=== PATIENT | male | born 1950 | race Caucasian/White ===

== ENCOUNTER 2023-08-06 13:34 | Outpatient (CLI) | payer MEDICARE, OTHER ==
[2023-08-06 20:12] LABS: BASOPHILS # (AUTO) 0.1 10^3/uL (0.0-0.1); BASOPHILS % (AUTO) 1.1 %; EOSINOPHILS # (AUTO) 0.2 10^3/uL (0.0-0.7); EOSINOPHILS % (AUTO) 3.2 %; HCT - HEMATOCRIT 51.6 % (42.0-52.0); HGB - HEMOGLOBIN 16.4 g/dL (14.0-18.0); LYMPHOCYTES % (AUTO) 19.2 %; MEAN CORPUSCULAR HEMOGLOBIN 31.9 pg (27.0-31.0); MEAN CORPUSCULAR HGB CONC 31.8 g/dL (32.0-36.0); MEAN CORPUSCULAR VOLUME 100.4 fL (80.0-94.0); MEAN PLATELET VOLUME 10.4 fL (7.4-11.4); MONOCYTES # (AUTO) 0.8 10^3/uL (0.0-1.0); MONOCYTES % (AUTO) 14.5 %; NEUTROPHILS # (AUTO) 3.3 10^3/uL (1.5-6.6); NEUTROPHILS % (AUTO) 61.6 %; PLT - PLATELET COUNT 211 10^3/uL (130-450); RED BLOOD COUNT 5.14 10^6/uL (4.70-6.10); RED CELL DISTRIBUTION WIDTH 14.6 % (12.0-15.0); WHITE BLOOD COUNT 5.3 x10^3/uL (4.8-10.8)
[2023-08-06 20:34] LABS: ALBUMIN 4.2 g/dL (3.2-5.5); ALBUMIN/GLOBULIN RATIO 1.6 (1.0-2.2); ALKALINE PHOSPHATASE 80 IU/L (42-121); ALT ALANINE AMINOTRANSFERASE 22 IU/L (10-60); AST ASPARTATE AMINOTRANSFERASE 22 IU/L (10-42); BILIRUBIN,TOTAL 0.8 mg/dL (0.2-1.0); BUN - BLOOD UREA NITROGEN 15 mg/dL (6-20); CALCIUM 9.5 mg/dL (8.5-10.3); CARBON DIOXIDE - CO2 31 mmol/L (21-32); CHLORIDE 104 mmol/L (101-111); CHOL/HDL RATIO 2.9 (<5.0); CHOLESTEROL 176 mg/dL; CRP - C-REACTIVE PROTEIN < 0.5 mg/dL (<0.5); GFR - MDRD 73 (>89); GLUCOSE 78 mg/dL (74-104); HDL CHOLESTEROL 61 mg/dL; LDL CHOLESTEROL,CALCULATED 95 mg/dL; LDL/HDL RATIO 1.6 (<3.6); POTASSIUM 4.1 mmol/L (3.5-4.5); SODIUM 138 mmol/L (135-145); TOTAL PROTEIN 6.9 g/dL (6.4-8.9); TRIGLYCERIDES 98 mg/dL (48-352); VLDL CHOLESTEROL 20 mg/dL
[2023-08-06 20:45] LABS: THYROID STIMULATING HORMONE 1.65 uIU/mL (0.34-5.60)
[2023-08-06 21:25] LABS: ESTIMATED AVERAGE GLUCOSE 91 mg/dL (70-100); HEMOGLOBIN A1c% 4.8 % (4.27-6.07)
== END 2023-08-06 13:35 | disposition home or self-care (01) ==
LOC: LAB.S 13:34
PROVIDERS: ATTEND Registered Nurse
DX: M79.2 Neuralgia and neuritis, unspecified (principal); R22.1 Localized swelling, mass and lump, neck; M35.00 Sjogren syndrome, unspecified
CPT/HCPCS: 36415; 80053; 80061; 83036; 83721; 84153; 84443; 85025; 85651; 86140

== ENCOUNTER 2023-08-18 10:51 | Outpatient (CLI) | payer MEDICARE, OTHER ==
--- NOTE | 2023-08-18 12:55 | Ultrasound Report ---
PROCEDURE: Soft Tissue Head or Neck INDICATIONS: NECK MASS TECHNIQUE: Real-time scanning was performed of the area of concern, with image documentation. COMPARISON: None FINDINGS: No abnormality is seen within the area of concern posterior to the left ear. No masses or lymphadenop athy. IMPRESSION: No abnormalities are seen within the area of concern. Reviewed by: Foreign Moreira MD on 08/18/2023 12:53 PM PDT Approved by: Foreign Moreira MD on 08/18/2023 12:53 PM PDT Station ID: [id number]
== END 2023-08-18 10:52 | disposition home or self-care (01) ==
LOC: DI 10:51
PROVIDERS: ATTEND Registered Nurse
DX: M79.2 Neuralgia and neuritis, unspecified (principal); R22.1 Localized swelling, mass and lump, neck

== ENCOUNTER 2023-09-30 17:53 | Outpatient (CLI) | payer MEDICARE, OTHER | END 2023-09-30 17:54 | disposition home or self-care (01) | LOC: LAB 17:53 | PROVIDERS: ATTEND Urology | DX: E29.1 Testicular hypofunction (principal) | CPT/HCPCS: 36415; 84403 ==

== ENCOUNTER 2023-11-09 11:31 | Outpatient (CLI) | payer MEDICARE, OTHER ==
[2023-11-09 15:41] LABS: CHOL/HDL RATIO 2.2 (<5.0); CHOLESTEROL 159 mg/dL; HDL CHOLESTEROL 73 mg/dL; LDL CHOLESTEROL,CALCULATED 78 mg/dL; LDL CHOLESTEROL,DIRECT 89 mg/dL (75-193); LDL/HDL RATIO 1.1 (<3.6); TRIGLYCERIDES 42 mg/dL (48-352); VLDL CHOLESTEROL 8 mg/dL
[2023-11-09 20:56] LABS: ESTIMATED AVERAGE GLUCOSE 94 mg/dL (70-100); HEMOGLOBIN A1c% 4.9 % (4.27-6.07)
== END 2023-11-09 11:32 | disposition home or self-care (01) ==
LOC: LAB.S 11:31
PROVIDERS: ATTEND Internal Medicine Cardiovascular Disease
DX: Z82.49 Family history of ischemic heart disease and other diseases of the circulatory system (principal)
CPT/HCPCS: 36415; 80061; 83036; 83721

== ENCOUNTER 2023-12-20 08:58 | Outpatient (CLI) | payer MEDICARE, OTHER | END 2023-12-20 08:59 | disposition home or self-care (01) | LOC: LAB.S 08:58 | DX: R14.0 Abdominal distension (gaseous) (principal); R19.7 Diarrhea, unspecified ==

== ENCOUNTER 2023-12-22 12:02 | Outpatient (CLI) | payer MEDICARE, OTHER ==
[2023-12-22 14:10] LABS: H. PYLORIS ANTIGEN STL NEGATIVE (Negative)
== END 2023-12-22 12:03 | disposition home or self-care (01) ==
LOC: LAB.R 12:02
DX: R14.0 Abdominal distension (gaseous) (principal); R19.7 Diarrhea, unspecified
CPT/HCPCS: 81599; 82705; 83993; 87177; 87209; 87329; 87338

== ENCOUNTER 2024-01-10 08:24 | Outpatient (CLI) | payer MEDICARE, OTHER ==
[2024-01-10 15:14] LABS: CHOL/HDL RATIO 2.6 (<5.0); CHOLESTEROL 170 mg/dL; HDL CHOLESTEROL 65 mg/dL; LDL CHOLESTEROL,CALCULATED 93 mg/dL; LDL/HDL RATIO 1.4 (<3.6); TRIGLYCERIDES 60 mg/dL; VLDL CHOLESTEROL 12 mg/dL
[2024-01-10 19:56] LABS: ESTIMATED AVERAGE GLUCOSE 91 mg/dL (70-100); HEMOGLOBIN A1c% 4.8 % (4.27-6.07)
== END 2024-01-10 08:25 | disposition home or self-care (01) ==
LOC: LAB.S 08:24
PROVIDERS: ATTEND Internal Medicine Cardiovascular Disease
DX: Z82.49 Family history of ischemic heart disease and other diseases of the circulatory system (principal)
CPT/HCPCS: 36415; 80061; 83036; 83721